=== PATIENT | female | born 1945 | race Caucasian/White ===

== ENCOUNTER 2017-07-10 17:00 | Emergency (ER) | payer MEDICARE, OTHER ==
[~2017-07-10] VITALS: Ht 157.5 cm; Wt 60.0 kg
[~2017-07-10 17:00] MED LIST: ADVA250A INH; ATOR20TA15 PO; CALCCHW9 CHEW; ESTR42.5V VAGINAL; LOSA50TA PO; PLAV75TA29 PO; TOVI4TAB PO
[2017-07-10 17:03] VITALS: BP 164/86; PULSE 83; RESP 15; TEMP 99.1; O2SAT 96
--- NOTE | 2017-07-10 18:01 | RADRPT ---
EXAM DATE/TIME: 07/10/2017 17:40 [facility] COMPARISON: No previous studies available for comparison. INDICATIONS : Left knee pain from first twisting and then falling. MEDICAL HISTORY : None. SURGICAL HISTORY : Left hip pinning ENCOUNTER: Initial ACUITY: 1 day PAIN SCORE: 10/10 LOCATION: Left knee FINDINGS: 4 view examination was performed. There is diffuse osteopenia. No significant osteophytes seen. No fractures seen. There is a oval ossific or calcific density in the soft tissues superior to the inf erior quadriceps tendon and 5 mm. The suprapatellar soft tissues are normal in thickness. Mild vasc ular calcification in the popliteal region. CONCLUSION: No evidence of recent bony injury. Osteopenia. Jose Olmedo MD on July 10, 2017 at 17:57 Board Certified Radiologist. This report was verified electronically.
--- NOTE | 2017-07-10 19:12 | PD ---
HPI Chief Complaint: Injury Time Seen by Provider: 18:45 Travel History International Travel<30 days: No Contact w/Intl Traveler<30days: No Traveled to known affect area: No History of Present Illness HPI A 72-year-old female presenting to the emergency department for evaluation of left hip patient is a 72-year-old female sustained working in left knee and left hip pain after sustaining a mechanical fall 2 days ago. Daughter states she has video cameras in her home and watched the video and patient tripped and fell. There was no head injury or loss of consciousness. Patient reports that she twisted her knee. She has not been taking any medications to alleviate the pain, she currently reports her pain is a 4 out of 10, pain is worse with ambulation. Pain is alleviated at rest. They report that it was swollen and applied an Abdoulaye bandage. Patient normally ambulates with a walker or cane. Past medical history includes CVA, hypertension, hyperlipidemia, asthma. Patient denied any dizziness, chest pain or shortness of breath prior to the fall. PFSH Past Medical History Hx Anticoagulant Therapy: Yes (PLAVIX) Arthritis: Yes Asthma: Yes High Cholesterol: Yes Cerebrovascular Accident: Yes GERD: Yes Glaucoma: Yes Genitourinary: Yes Hypertension: Yes Neurologic: Yes Reproductive: Yes (PELVIC PROLAPSE) Past Surgical History Eye Surgery: Yes (GLAUCOMA SX ) Hysterectomy: Yes (PARTIAL) Social History Alcohol Use: No Tobacco Use: No Substance Use: No Allergies-Medications (Allergen,Severity, Reaction): Coded Allergies: iodine (Unverified Allergy, Intermediate, 01/11/17) penicillin G (Unverified Allergy, Intermediate, Hives, 01/11/17) potassium iodide (Unverified Allergy, Intermediate, 01/11/17) povidone-iodine (Unverified Allergy, Intermediate, 01/11/17) sodium iodide (Unverified Allergy, Intermediate, 01/11/17) sodium iodide (Unverified Allergy, Intermediate, 01/11/17) acetaminophen (Unverified Allergy, Mild, HIVES, 01/11/17) diatrizoate meglumine (Unverified Allergy, Mild, HIVES, 01/11/17) gadobenic acid (Unverified Allergy, Mild, HIVES, 01/11/17) gadodiamide (Unverified Allergy, Mild, HIVES, 01/11/17) gadoteridol (Unverified Allergy, Mild, HIVES, 01/11/17) hydrocodone (Unverified Allergy, Mild, HIVES, 01/11/17) iodixanol (Unverified Allergy, Mild, HIVES, 01/11/17) iohexol (Unverified Allergy, Mild, HIVES, 01/11/17) Uncoded Allergies: OYSTERS (Allergy, Mild, HIVES, 07/27/14) Reported Meds & Prescriptions Reported Meds & Active Scripts Active Reported Losartan (Losartan Potassium) 50 Mg Tab 50 Mg PO DAILY Advair Diskus Inh (Fluticasone-Salmeterol Inh) 250-50 Mcg/Blist Aer 1 Puff INH BID Rinse mouth after use. Plavix (Clopidogrel Bisulfate) 75 Mg Tab 75 Mg PO DAILY Atorvastatin (Atorvastatin Calcium) 20 Mg Tab 20 Mg PO HS Review of Systems Except as stated in HPI: all other systems reviewed are Neg Musculoskeletal: Positive: Myalgias, Arthralgias, Edema, Pain Physical Exam Narrative GENERAL: Well-developed, well-nourished, alert elderly female. Resting comfortably in no acute distress. SKIN: Warm and dry. HEAD: Normocephalic. EYES: No scleral icterus. No injection or drainage. NECK: Supple, trachea midline. No JVD or lymphadenopathy. CARDIOVASCULAR: Regular rate and rhythm without murmurs, gallops, or rubs. RESPIRATORY: Breath sounds equal bilaterally. No accessory muscle use. GASTROINTESTINAL: Abdomen soft, non-tender, nondistended. MUSCULOSKELETAL: No cyanosis. Mild edema noted to the left anterior knee, no obvious deformities noted. No tenderness to palpation. 2+ dorsalis pedal pulses bilaterally. BACK: Nontender without obvious deformity. No CVA tenderness. Data Data Last Documented VS Vital Signs Date Time Temp Pulse Resp B/P (MAP) Pulse Ox O2 Delivery O2 Flow Rate FiO2 07/10/17 17:03 99.1 83 15 164/86 (112) 96 Orders Orders Knee, Complete (4vws) (07/10/17 ) Hip, Uni(Ap&Lat) W Ap Pelvis (07/10/17 ) Acetamin-Codeine 300-30 Mg (Tylenol-Code (07/10/17 19:15) MDM Medical Decision Making Medical Screen Exam Complete: Yes Emergency Medical Condition: Yes Interpretation(s) Last Impressions Knee X-Ray 07/10/17 0000 Signed Impressions: Service Date/Time: Monday, July 10, 2017 17:40 - CONCLUSION: No evidence of recent bony injury. Osteopenia. Jose Omledo MD Vital Signs Date Time Temp Pulse Resp B/P (MAP) Pulse Ox O2 Delivery O2 Flow Rate FiO2 07/10/17 17:03 99.1 83 15 164/86 (112) 96 Differential Diagnosis Sprain versus strain versus fracture versus other Narrative Course Patient is a 72-year-old female presenting to the emergency department for evaluation of left hip and knee pain. Patient's vital signs are stable, x-ray of the left knee was performed while in triage, x-rays negative which shows arthritic changes. X-ray of the left hip is pending. Patient was given Tylenol 3 for pain. X-ray of the left hip is negative for acute fracture or dislocation. Patient is encouraged to continue gentle range of motion exercises, heat and ice to affected area, avoid bed rest, avoid exacerbating activities. Patient has a walker and cane at home already to utilize for safe ambulation. She is encouraged to follow-up with her primary doctor. Additionally patient and daughter can return to emergency department for any new or worsening symptoms. Patient stable for discharge. Diagnosis Primary Impression: Knee strain Qualified Codes: S86.912A - Strain of unspecified muscle(s) and tendon(s) at lower leg level, left leg, initial encounter Additional Impression: Fall Qualified Codes: W19.XXXA - Unspecified fall, initial encounter Referrals: Primary Care Physician 2 days Patient Instructions: Knee Exercises (GEN), Knee Pain (ED), General Instructions Additional Instructions: Follow-up with your primary doctor Take medications as needed and as directed for pain Alternate heat and ice the affected area, continue gentle range of motion exercises, avoid exacerbating activities, use your walker Return to emergency department for any new or worsening symptoms Med/Other Pt SpecificInfo: Prescription(s) given Scripts Acetaminophen-Codeine (Tylenol-Codeine #3) 300-30 mg Tab 1 TAB PO Q6H Y for PAIN, #10 TAB 0 Refills Prov: Gracie Meadows 07/10/17 Lidocaine (Lidoderm) 5 % Adh..patch 1 PATCH T-DERMAL DAILY Y for PAIN SCALE 1 TO 10 for 14 Days Prov: Gracie Meadows 07/10/17 Disposition: 01 DISCHARGE HOME Condition: Stable Gracie Meadows Jul 10, 2017 19:12
[2017-07-10] MEDS ORDERED: ACETAMINOPHEN/CODEINE 300 MG/30 MG TAB PO ONE (19:15)
--- NOTE | 2017-07-10 19:49 | RADRPT ---
EXAM DATE/TIME: 07/10/2017 19:23 [facility] COMPARISON: No previous studies available for comparison. INDICATIONS : Left hip pain, fell MEDICAL HISTORY : Osteopenia SURGICAL HISTORY : Left hip pinning ENCOUNTER: Initial ACUITY: 1 day PAIN SCORE: 10/10 LOCATION: Left Hip FINDINGS: No bony pelvic ring is grossly intact. There are 3 compression screws traversing the left femoral ne ck at the tip of all 3 screws project in the femoral head. Hardware appears intact. No evidence of acute fracture. CONCLUSION: No evidence of acute fracture or dislocation. Jose Olmedo MD on July 10, 2017 at 19:46 Board Certified Radiologist. This report was verified electronically.
[2017-07-10] MEDS ORDERED: LIDO1ADH4 T-DERMAL (19:56)
[2017-07-10] MEDS ORDERED: TYLETAB34 PO (19:56)
== END 2017-07-10 20:27 | disposition home or self-care (01) ==
LOC: NEPD 17:00
DX: S86.912A Strain of unspecified muscle(s) and tendon(s) at lower leg level, left leg, initial encounter (principal); M25.552 Pain in left hip; M85.862 Other specified disorders of bone density and structure, left lower leg; I10 Essential (primary) hypertension; E78.5 Hyperlipidemia, unspecified; J45.909 Unspecified asthma, uncomplicated; K21.9 Gastro-esophageal reflux disease without esophagitis; W18.30XA Fall on same level, unspecified, initial encounter; Z86.73 Personal history of transient ischemic attack (TIA), and cerebral infarction without residual deficits
CPT/HCPCS: 73502; 73564; 99283